=== PATIENT | female | born 1970 | race Caucasian/White ===

== ENCOUNTER → 2020-06-17 15:42 | Outpatient (CLI) | payer MEDICARE, SELFPAY ==
--- NOTE | 2020-06-17 15:42 | MR_ITS ---
PROCEDURE: MR CERVICAL SPINE WO CON CLINICAL INDICATION: neck pain radiates to arms BILATERAL ARM PAIN, NUMBNESS, AND TINGLING. [id number]. HEADACHE. NO PRIOR. COMPARISON: No exams were available for comparison TECHNIQUE: Standard multiplanar multiecho sequences are performed without contrast. 3-D MIP and myelographic images are also rendered and reviewed FINDINGS: There is normal alignment. Craniocervical junction has an unremarkable appearance. C2-C3: Minimal ridging of the posterior endplate eccentric toward the left without impingement C3-C4: Unremarkable. C4-C5: Unremarkable. C5-C6: Unremarkable. C6-C7: Slight decrease in the disc space suggesting mild degenerative disc disease. C7-T1: Unremarkable. No disc herniation or canal stenosis. Unremarkable signal intensity of the spinal cord IMPRESSION: Only minimal degenerative changes. No disc herniation canal stenosis or other significant anomaly Dictated b Eder Llanes MD 06/19/2020 13:05 Eder Llanes MD in [place] 06/19/2020 13:05
== END ==
LOC: RAD 15:42
PROVIDERS: PCP Family Medicine; Visit Provider Family Medicine
DX: M54.2 Cervicalgia (principal)
CPT/HCPCS: 72141; 76376

== ENCOUNTER → 2020-08-25 09:48 | Outpatient (CLI) | payer MEDICARE, SELFPAY ==
--- NOTE | 2020-08-25 09:53 | XR_ITS ---
PROCEDURE: XR WRIST LT MIN 3V CLINICAL INDICATION: left wrist pain/ CTS COMPARISON: No exams were available for comparison FINDINGS: No fracture or dislocation. No lytic or blastic change. There is normal mineralization. The joint spaces are well-preserved. No significant degenerative/arthritic changes. No erosive changes evident. Other findings:None. IMPRESSION: No acute findings. Dictated by: Eder Llanes MD 08/25/2020 16:42 Eder Llanes MD in [facility] 08/25/2020 16:42
--- NOTE | 2020-08-25 09:53 | XR_ITS ---
PROCEDURE: XR WRIST RT MIN 3V CLINICAL INDICATION: CTS/ rt wrist pain COMPARISON: No exams were available for comparison FINDINGS: No fracture or dislocation. No lytic or blastic change. There is normal mineralization. The joint spaces are well-preserved. No significant degenerative/arthritic changes. No erosive changes evident. Other findings:None. IMPRESSION: No acute findings. Dictated by: Eder Llanes MD 08/25/2020 16:41 Eder Llanes MD in [place] 08/25/2020 16:41
== END ==
PROVIDERS: PCP Family Medicine; Visit Provider Orthopaedic Surgery
DX: M25.532 Pain in left wrist (principal); M25.531 Pain in right wrist
CPT/HCPCS: 73110

== ENCOUNTER → 2020-09-14 14:18 | Outpatient (CLI) | payer MEDICARE, SELFPAY ==
[2020-09-14 15:43] LABS: Basophils % 0.4 % (0.1-2.0); Eosinophils # 0.1 K/mm3 (0.0-0.4); Eosinophils % 0.7 % (0.1-12.0); Hematocrit 43.9 % (37.0-47.0); Hemoglobin 14.9 g/dL (12.2-16.2); Lymphocytes # 2.5 K/mm3 (0.7-4.5); Lymphocytes % 27.3 % (10-50); Mean Corpuscular HGB Conc 33.9 g/dL (31.8-35.4); Mean Corpuscular Hemoglobin 33.2 pg (27.0-31.2); Mean Platelet Volume 6.7 fl (7.4-10.4); Monocytes # 0.3 K/mm3 (0.1-1.0); Monocytes % 3.4 % (1.7-9.3); Neutrophils # 6.2 K/mm3 (1.8-7.8); Neutrophils % 68.2 % (37.0-80.0); Platelet Count 297 K/mm3 (142-424); Red Blood Count 4.48 M/mm3 (4.20-5.40); Red Cell Distribution Width 13.3 % (11.5-17.5)
[2020-09-14 16:14] LABS: Chloride 106 mmol/L (98-107)
[2020-09-14 16:15] LABS: Sodium 140 mmol/L (136-145)
[2020-09-14 16:17] LABS: Alanine Aminotransferase 6 U/L (12-78); Albumin Level 4.1 g/dl (3.5-5.0); Albumin/Globulin Ratio 1.1 (1.1-1.8); Alkaline Phosphatase 116 U/L (38-126); Aspartate Amino Transferase 23 U/L (14-36); Bilirubin,Total 0.4 mg/dl (0.2-1.3); Blood Urea Nitrogen 14 mg/dl (7-17); Carbon Dioxide 25 mmol/L (22.0-30.0); Estimated Glomerular Filt Rate 67 ml/min (>60); GFR (African American) 81 ML/MIN (>60); Globulin 3.8 g/dL (1.3-3.2); Total Protein,Serum 7.9 g/dl (6.3-8.2)
[2020-09-14 16:18] LABS: Glucose 88 mg/dl (74-100)
[2020-09-14 17:02] LABS: Coronavirus 19 IgG Antibody Negative (Negative); Coronavirus 19 IgM Antibody Negative (Negative)
== END ==
PROVIDERS: Visit Provider Orthopaedic Surgery
DX: Z01.818 Encounter for other preprocedural examination (principal); G56.01 Carpal tunnel syndrome, right upper limb
CPT/HCPCS: 36415; 80053; 85025; 86328

== ENCOUNTER 2020-09-16 07:30 | Day surgery (SDC) | payer MEDICARE, SELFPAY ==
[2020-09-16 08:34] VITALS: BP 109/71; PULSE 75; RESP 18; TEMP 36.1; O2SAT 94; BMI 26.6
--- NOTE | 2020-09-16 10:36 | P.PN_ITS ---
[facility] Anesthesia Checklist - Patient Identification Patient Identification: Arm Band, Verbal (Name & ) - Structural Data Admitted From: Home Planned Operative Procedure/s: Right CTR Consent for Planned Operative Procedure(s) Verified: Yes Verified Documents: Surgical Consent, History and Physical - NPO Status Verified Time NPO: 00:00 - Chart Verification Results Verified: CBC, BMP - Additional verifications Anesthesia Reactions: No Hx Blood Transfusions: No Blood Transfusion Reaction: No - Airway Assessment C-Spine Mobility Assessed: Yes TMJ Mobility Assessed: Yes Dentition: Dentures-good fit - Neurological Assessment Level of Consciousness: Awake, Alert, Appropriate, Follows Commands Hx Seizures: No Numbness or tingling in extremities: No - Anesthesia Plan Anesthesia Risk discussed: Yes Anesthesia Plan: Verified ASA Class: III Anesthesia Type: MAC w/Block [facility] History I have reviewed the patient's past medical history: Yes Medical History: Reports:: Anxiety, Cancer (cervical), Chronic Obstructive Pulmonary Disease (COPD), Depression, Gall Bladder Disease, Gastroesophageal Reflux Disease(GERD), Transient Ischemic Attacks (TIA) Denies:: Diabetes Mellitus Type 1, Diabetes Mellitus Type 2, Internal Pacemaker, MRSA *Have you ever received a pneumonia vaccine?: Yes *Have you received a flu vaccine this season?: No Other Medical History: Denies: Blood Transfusion Reaction Anesthesia experience/problems:: None Other Surgeries: Yes: Appendectomy, Hysterectomy-Total. No: Pacemaker Amputation: No Fractures: Yes - *Social History Last grade of school completed: High school graduate Smoking Status: Current every day smoker Tobacco Type: cigarettes # Packs/Day (cigarettes): 1 Alcohol Intake: never Alcohol Intake Frequency:: holidays/special occasions only Substance Use Type: denies use *Occupational Status:: disabled Housing: house Household Members: family *Travel in the last 8 weeks: None - Psychiatric History Pschychiatric History:: Reports:: Anxiety, Depression Family Hx:: Cancer, Heart Attack
[2020-09-16 10:55] VITALS: BP 101/69; PULSE 79; RESP 18; TEMP 36.5; O2SAT 96
[2020-09-16 11:10] VITALS: BP 109/79; PULSE 87; RESP 18; O2SAT 98
[2020-09-16 11:25] VITALS: BP 113/71; PULSE 76; RESP 18; O2SAT 96
--- NOTE | 2020-09-16 11:30 | HMH.OPNOTE ---
Date of procedure: 09/16/20 Pre-op Diagnosis:: Carpal tunnel syndrome, right wrist Post-op Diagnosis:: Same Procedure performed:: Open carpal tunnel release, right wrist Surgeon:: Kayode Castle MD [employer] ATTENDANT:: Saul Palacios Anesthesia: regional (Supraclavicular nerve block), other (IV sedation) Estimated blood loss (mL): 2 Clinical Note:: Patient is 50-year-old female with bilateral carpal tunnel syndrome with long-standing symptoms. Her EMG/NCV studies confirmed moderate carpal tunnel syndrome on both sides. Her symptoms on the right side are worse than the left. Patient is having significant and disabling symptoms on the right side and has failed to respond adequately to conservative management. Therefore the carpal tunnel release surgery is necessary to relieve symptoms, preserve the remaining fibers of the median nerve, improve function and decrease the pain, paresthesias and weakness and to prevent permanent nerve damage. Please refer to my office note for full details. Operative findings:: The intraoperative findings showed the median nerve to be very tightly compressed and hyperemic. The flexor retinaculum was noted to be thick and tight. There was mild synovitis in the carpal tunnel. There was no evidence of any space-occupying lesions within the carpal tunnel. Operative note:: On the day of the surgery the patient was met in the preoperative area. Patient was positively identified and the operative site was marked and initialed by me. A physical examination was performed and the chart was updated. I again discussed the procedure, risks and benefits and alternatives with the patient. The complications discussed include but are not limited to- bleeding, injury to nerves, blood vessels and tendons, infection, wound dehiscence, incomplete relief/continued pain, persistent numbness, palmar hypersensitivity, pillar pain, DVT/PE, complex regional pain syndrome(CRPS), worsening of nerve damage, failure of the condition to improve, incomplete return of function, bowstringing of tendons, weakness of solar energy technician strength, recurrence, failure of the surgery to accomplish the desired goals, decreased use of the hand, loss of use of the arm, loss of the hand or arm, loss of life. Likely need for further surgery in the future has been discussed. I've indicated to the patient where the proposed incision would be made and also discussed the possibility of extending the incision if needed to accomplish an effective release. We have discussed how the goal of surgery is to protect the fibers which have remained healthy and hopefully reverse the symptoms of the fibers which are compromised but still recoverable. We have explained that, fibers that are permanently damaged will not recover. Patient asked appropriate questions and all have been answered by me. Patient wished to proceed with the surgery. Patient understood the risks, agreed to proceed with surgery, and no guarantees or assurances were given or implied. The patient was brought to the operating room and placed supine on the operating table. The right upper extremity was placed over a side table. All the bony prominences were well-padded. Patient had supraclavicular nerve block and IV sedation administered by the alteration hand. A well-padded tourniquet cuff was placed over the upper arm. The right upper extremity was prepped and draped in the usual sterile fashion. A preprocedure timeout was performed as per hospital policy. The skin incision was marked using the Pereira's landmarks, just ulnar to the thenar crease. The limb was exsanguinated with the Esmarch bandage and tourniquet was inflated to 250 mmHg. Please see nursing records for the total tourniquet time. Pereira's landmarks were utilized and a skin incision was made parallel and just ulnar to the thenar crease with a 15 blade. Blunt tissue dissection was carried through the subcutaneous tissue down to the palmar fascia. The palmar fascia was incised with the k
[2020-09-16 12:25] VITALS: TEMP 43
== END 2020-09-16 11:25 | disposition home or self-care (01) ==
LOC: OR 07:32
PROVIDERS: PCP Family Medicine; Visit Provider Orthopaedic Surgery
PROC: (CPT 64721; principal; 2020-09-16 09:00)
DX: G56.01 Carpal tunnel syndrome, right upper limb (principal)
CPT/HCPCS: 64721; 96374; J0670

== ENCOUNTER 2025-06-27 20:19 | Emergency (ER) | payer MEDICARE, SELFPAY ==
--- OUTSIDE RECORDS SUMMARY | 2025-05-01 08:45 | XMS_ITS | Encounter Summary ---
Author Organization [place] [address] Care Team Providers Care Electrical Maintenance Supervisor Name Role Phone Asiya Trevino APRN Primary Care Provider [phone] Reason for Referral * Consultation (Routine) - Authorization Not Needed Specialty Diagnoses / Procedures Referred By Contluba t Referred To Contact Diagnoses Atypical chest pain Procedures NE OFFICE/OUTPATIENT NEW MODERATE MDM 45 MINUTES Asiya Trevino APRN [address] [place] [address] Phone: tel: fax: Referral ID Status Reason Start Date Expiration Date Visits Requested Visits Authorized [id number] Authorization Not Needed 05/01/2025 05/01/[address]Raghu Moreno, [facility], [address] [place] [address] Dr. Webber phone: [phone] Reason for Visit * Reason Comments Other States that she is h aving some sharp pains in her chest. Started 3 weeks ago, becoming more frequent Chest Pain Encounter Details Date Type Department Care Team (Late st Contact Info) Description 05/01/2025 8:45 AM EDT Office Visit [facility] [place] [address] [place] [address] Asiya Trevino APRN [address] [place] [address] Atypical chest pain (Primary Dx); Pain of left scapula Social History Tobacco Use Types Packs/Day Years Used Date Smoking Tobacco: Every Day Cigarettes 0.5 35 Started: 06/18/1990 Smokeless Tobacco: Current Chew Alcohol Use Standard Drinks/Week Comments Yes 1 (1 standard drink = 0.6 oz pur e alcohol) occ AUDIT-C Answer Date Recorded Q1: How often do you have a drink containing alc ohol? Monthly or less 06/16/2021 Q2: How many drinks containi ng alcohol do you have on a typical day when you are drinking? 1 or 2 06/16/2021 Q3: How often do you have si x or more drinks on one occasion? Never 06/16/2021 PHQ-2 Answer Date Recorded PHQ-2 Total Score 0 05/01/2025 Comments No Sex and Gender Information Value Date Recorded Sex Assigned at Not on file Legal Sex Female 3:38 AM EDT Gender Identity Not on file Sexual Orientation Not on file documented as of this encounter Last Filed Vital Signs Vital Sign Reading Time Taken Comments Blood Pressure 118/76 05/01/2025 8:47 AM EDT Pulse 67 05/01/2025 8:47 AM EDT Temperature 36.3 C (97.3 F) 05/01/2025 8:47 AM EDT Respiratory Rate 20 05/01/2025 8:47 AM EDT Oxygen Saturation 97% 05/01/2025 8:47 AM EDT Inhaled Oxygen Concentration - - Weight 73.5 kg (162 lb) 05/01/2025 8:47 AM EDT Height 165.1 cm (5' 5 ) 05/01/2025 8:47 AM EDT Body Mass Index 26.96 05/01/2025 8:47 AM EDT documented in this encounter Functional Status * PHQ-9 Total Score Answer Date of Assessment Author 0 05/01/2025 8:47 AM EDT Candy Caballero RMA * Question Answer Date of Assessment Author Little interest or pleasure in doing things 0 05/01/2025 8:47 AM EDT Candy Kirkpatrick RMA Feeling down, depressed, or hopeless 0 05/01/2025 8:47 AM EDT Candy Kirkpatrick RMA PHQ-2 Total Score 0 05/01/2025 8:47 AM EDT Candy Kirkpatrick RMA * PHQ-2 Total Score Answer Date of Assessment Author 0 05/01/2025 8:47 AM EDT Candy Caballero RMA documented as of this encounter Ordered Prescriptions Prescription Sig Dispense Quantity Refills Last Filled Start Date End Date HYDROcodone-acetami nophen (NORCO) 7.5-325 mg Oral TabletIndications:P ain of left scapula Take 1 Tablet by mouth every 6 hours as needed for Acute Pain (R52). 12 Tablet 05/01/2025 documented in this encounter Progress Notes * Uriel sAiya Galvin, EMERGENCY MEDICINE PHYSICIAN - 05/01/2025 8:45 AM EDT Assessment & Plan 1. Shoulder pain. - The etiology of the shoulder pain could be musculoskeletal in nature. - Increased pain and limited mobility. - Discussed the possibility of musculoskeletal origin and the relationship with numbness in fingers. - An injection will be administered into her left shoulder for pain relief. 2. Chest pain. - Reports experiencing sharp chest pains that have been increasing in frequency over the past threeweeks. - No radiation of pain down the arm, occasional nausea. - Discussed the need for a cardiology workup and the importance of cardiovascular screening. - A referral to a b2b sales executive will be made for further evaluation. An EKG performed today was NSR. PROCEDURE Procedure: Injection into the left shoulder All questions were answered and agreement to proceed was given after the following Pre-Procedure details were reviewed: - Risks and Benefits: Pain relief, potential for temporary discomfort at the injection site. - Alternative Options: Physical therapy, oral pain medications. - Side effects: Temporary discomfort at the injection site, possible swelling. - Consent: Verbal consent obtained. Intra-Procedure: - Time-Out: Confirmed patient's identity and procedure site. - Site Preparation: Cleaned and disinfected the left shoulder. - Medication: Depo-Medrol administered. Post-Procedure: - Tolerance Level: Tolerated the procedure well. - Complications: None observed. - Home Care Instructions: Monitor for any signs of infection or increased pain at the injection site, apply ice if needed, and follow up if symptoms persist. Dx/Orders: Diagnoses and all orders for this visit: Atypical chest pain - AMB REFERRAL TO CARDIOLOGY - POCT EKG Pain of left scapula - HYDROcodone-acetaminophen (NORCO) 7.5-325 mg Oral Tablet; Take 1 Tablet by mouth every 6 hours asneeded for Acute Pain (R52). Dispense: 12 Tablet; Refill: 0 - methylPREDNISolone acetate (DEPO-Medrol) injection 40 mg Return if symptoms worsen or fail to improve. Subjective Amilcar Ryder is a 54 y.o. female Chief Complaint Patient presents with Other States that she is having some sharp pains in her chest. Started 3 weeks ago, becoming more frequent Chest Pain History of Present Illness The patient is a 54-year-old female who presents today with complaints of shoulder pain and chest pain. She reports persistent L shoulder pain and is seeking relief through an injection. This has resulted in numbness in two of her fingers. She has been experiencing chest pain, which has been escalating in frequency over the past three weeks. The pain is described as sharp and intermittent, occurring daily. Accompanying symptoms includenausea, but there is no radiation of the pain down her arm. She has not previously consulted a b2b sales executive for these symptoms. Review of Systems Constitutional: Negative. Eyes: Negative for visual disturbance. Respiratory: Positive for cough and chest tightness. Negative for shortness of breath. Cardiovascular: Positive for chest pain and palpitations. Negative for leg swelling. Gastrointestinal: Positive for nausea. Negative for abdominal pain, diarrhea and vomiting. Genitourinary: Negative for dysuria. Musculoskeletal: Positive for arthralgias. Skin: Negative. Neurological: Positive for numbness (4th/5th digit L hand). Negative for dizziness, syncope and light-headedness. Psychiatric/Behavioral: Negative. Objective Blood pressure 118/76, pulse 67, temperature 97.3 ??F (36.3 ??C), temperature source Temporal, resp. rate 20, height 5' 5 (1.651 m), weight 162 lb (73.5 kg), SpO2 97%, not currently . Body mass index is 26.96 kg/m??. Physical Exam Vitals reviewed. Constitutional: General: She is not in acute distress. HENT: Mouth/Throat: Mouth: Mucous membranes are moist. Eyes: Conjunctiva/sclera: Conjunctivae normal. Cardiovascular: Rate and Rhythm: Normal rate and regular rhythm. Heart sounds: Normal heart sounds. Pulmonary: Effort: Pulmonary effort is normal. Breath sounds: Normal breath sounds. Musculoskeletal: Left shoulder: Tenderness and bony tenderness present. Decreased range of motion. Decreased strength. Cervical back: Neck supple. Pain with movement present. Decreased range of motion. Right lower leg: No edema. Left lower leg: No edema. Skin: General: Skin is warm and dry. Neurological: Mental Status: She is alert and oriented to person, place, and time. Psychiatric: Mood and Affect: Mood normal. Thought Content: Thought content normal. Results The provider educated the patient (or legal inbound call center representative) on the use of the ambient listening artificial intelligence tool, [employer]. They were informed that this AI tool processes the conversation to generate a clinical note with the expected benefit of improved accuracy while achieving an improved encounter experience for the patient and provider.?The provider explained that the medical information captured by the AI tool including, but not limited to, diagnoses and treatment plan would be protected in accordance with applicable privacy laws and that all diagnoses and treatment decisions would be made by the provider. The provider explained that the note generated will be reviewed bythe provider for accuracy to minimize potential errors.? The patient was given an opportunity to ask questions and opt out of proceeding with the use of the AI tool. After being informed of such information, the patient (or legal inbound call center representative), and each individual in attendance with the patient, verbally consented to the use of the AI tool. documented in this encounter Plan of Treatment Upcoming Encounters Date Type Department Care Team (Late st Contact Info) Description 06/30/2025 10:45 AM EDT Office Visit [facility] [address] [place] [id number] Asiya Trevino APRN [address] [facility] [place] [address] Scheduled Referrals Name Type Priority Associated Diagnoses Order Schedule AMB REFERRAL TO CARDIOLOGY Outpatient Referral Routine Atypical chest pain Ordered: 05/01/2025 documented as of this encounter Goals Goal Patient Goal Type Associated Problems Recent Progress Patient-Stated? Author Blood Pressure < 140/90 Blood Pressure 118/76(2024 8:47 AM EDT) No Candy Kirkpatrick RMA Maintain a healthy diet, exercise regularly and maintain an ideal body weight General No Candy Kirkpatrick RMA Stay Tobacco Free Lifestyle No Candy Kirkpatrick RMA documented as of this encounter Procedures Procedure Name Priority Date/Time Associated Diagnosis Comments POCT EKG Routine 05/01/2025 9:40 AM EDT Atypical chest pain documented in this encounter Results * POCT EKG (05/01/2025 9:40 AM EDT) 05/01/2025 9:40 AM EDT Asiya Trevino APRN POINT OF CARE CARDIOLOGY Final Result [facility] [place] [address] [place] [address] documented in this encounter Visit Diagnoses Diagnosis Atypical chest pain- Primary Other chest pain Pain of left scapula Pain in joint, shoulder region documented in this encounter Administered Medications Inactive Administered Medications - up to 1 most recent administrations Medication Order MAR Action Action Date Dose Rate Site methylPREDNISolone acetate (DEPO-Medrol) injection 40 mg 40 mg, Intra-articular, ONCE, 1 dose, On Sun05/01/25 at 2300, L shoulder, Dx: 1. Pain of left scapulaIndications:Pain of left scapula Given 05/01/2025 9:30 AM EDT 40 mg documented in this encounter Discontinued Medications Medication Sig Discontinue Reason Start Date End Da te HYDROcodone-acetaminophe n (NORCO) 7.5-325 mg Oral TabletIndications:Pain of left scapula Take 1 Tablet by mouth every 6 hours as needed for Acute Pain (R52). Reorder 03/20/2025 05/01/2025 documented as of this encounter Care Teams Electrical Maintenance Supervisor Relationship Specialty Start Date End Date Asiya Trevino APRN [address] [place] [address] PCP - General Nurse Practitioner 03/10/25 documented as of this encounter
[2025-06-27 20:26] VITALS: BP 138/81; PULSE 88; RESP 16; TEMP 36.6; O2SAT 96; BMI 26.6
--- NOTE | 2025-06-27 20:28 | HMH.EDGENADL ---
Discharge Plan Disposition Patient Disposition: Home, Self-Care Referrals Follow up/Referrals: Zion Boswell MD [Primary Care Provider, Family Practice] - See instructions Jaimie Smallwood DPM [Staff Physician, Podiatry] - See instructions Activity Restrictions/Add. Instructions Additional Instructions/Restrictions: You can wear the walking boot as needed to help with pain. You can continue to take Tylenol, ibuprofen, ice packs to help with your symptoms. You are being referred to Dr. Smallwood with the podiatry team for follow-up. I encouraged her to give their office a call to schedule follow-up appointment. If you develop any new or worsening symptoms, or if you become concerned for your health for any reason, return to the emergency department for evaluation Clinical Impressions Clinical Impression: Acute pain of left foot Print Language Print Language: Maori Discharge ED Provider: Billy Sheridan Adult HPI General Chief complaint: Extremity Injury, Lower Stated complaint: AO 8-9 days ago,injury left foot injury Time Seen by Provider: 06/27/25 20:22 Mode of Arrival: Ambulatory Source of Information: Patient Limitations: No Limitations History of Present Illness HPI narrative: Myriam Ryder is a 55F with a history of tobacco use who presents to the emergency department for complaints of left foot pain. Patient states that 8 to 9 days ago, she was walking down a set of steps in her garage and hit her left foot on the step. She reports pain at the base of the 2nd, 3rd and 4th toes ever since. She states that she is been walking on it but is painful to do so. She states that she has been taking Tylenol and ibuprofen and feels like it is not getting any better. She does state that it was initially bruised but overall the bruising has improved. Related Data Allergies Allergy/AdvReac Type Severity Reaction Status Date / Time Sulfa (Sulfonamide Allergy Unknown Verified 09/29/20 09:19 Antibiotics) [facility] Disclaimer: The information contained in this section may have been updated after the patient was seen, as this information can be updated by other users. Social History Smoking Status: Current every day smoker tobacco type: cigarettes packs per day: 1 alcohol intake: never substance use type: denies use current occupational status: disabled Travel in the last 8 weeks?: None household members: family housing: house caffeine: Yes Have you lived/traveled outside US in past 30 days?: No Contact w/someone who lives/traveled outside US past 30 days?: No Exposure to someone with infectious disease in past 14 days?: No Do you have a fever (greater than 100.4 F or 38 C)?: No Have you tested positive for COVID-19?: No Exposed to someone with COVID-19 in past 14 days?: No Do you have a sore throat?: No Do you have a cough?: No Do you have any weakness?: No Do you have any diarrhea?: No Are you experiencing any unusual bleeding?: No Do you have any muscle aches/pain?: No Do you have any abdominal pain?: No Are you experiencing loss of taste or smell?: No Other Medical History Have you received the Flu Vaccine for this season: No Have you received the Pneumonia Vaccine: No ROS Obtained: Yes Systems reviewed as appropriate & no additional complaints except as documented Physical Exam General General appearance: alert and in no apparent distress Head Head exam: atraumatic Eye Eye exam: Present normal appearance ENT ENT exam: Present normal external ear exam Neck Neck exam: Present full ROM Chest Chest inspection: Present symmetric chest wall rise Respiratory Respiratory exam: Present normal lung sounds bilaterally; Absent respiratory distress Cardiovascular Cardiovascular exam: Present regular rate and normal rhythm Abdominal Exam Abdominal exam: Present soft; Absent tenderness or guarding Extremities Exam Extremities exam: Present normal inspection Expanded Lower Extremity Exam Left: Comment: LLE: Tenderness to the distal forefoot but flexor and extension function intact to all toes. Tenderness at the base of the 2nd, 3rd and 4th toes. Mild amount of swelling in this area. 2+ DP and PT pulses. Sensation grossly intact. Back Exam Back exam: Present normal inspection Neurological Exam Neurological exam: Present alert and oriented X3 Psychiatric Psychiatric exam: Present normal affect Skin Skin exam: Present warm and dry Medical Decision Making Medical Records Screening: Per USPSTF and CDC recommendations, given the prevalence of disease in our region, it is our hospital?s policy to screen for HIV and viral Hepatitis for all patients aged 18 and over and those with ongoing risk factors. Hemal Inquiry Pt receiving controlled substance: No Vital Signs: 06/27/25 20:26 Temperature 98 F Temperature Source Oral Pulse Rate [Radial] 88 Respiratory Rate 16 Blood Pressure [Right Arm] 138/81 Blood Pressure Mean [Right Arm] 100 Blood Pressure Position [Right Arm] Sitting 02 Sat by Pulse Oximetry 96 Oxygen Delivery Method Room Air Orders (Tests/Meds): ORDERS Category Date Time Status Foot XR left 2 views [XR foot LT 2V] Stat Exams 06/27/25 20:30 Taken Medical Decision Narrative: Myriam Ryder is a 55F with a history of tobacco use who presents to the emergency department for complaints of left foot pain. Patient states that 8 to 9 days ago, she was walking down a set of steps in her garage and hit her left foot on the step. She reports pain at the base of the 2nd, 3rd and 4th toes ever since. She states that she is been walking on it but is painful to do so. She states that she has been taking Tylenol and ibuprofen and feels like it is not getting any better. She does state that it was initially bruised but overall the bruising has improved. She states that it is continued to be painful and so she feels like she may have fractured something and wants it evaluated. On arrival, patient is hemodynamically stable, no acute distress, breathing comfortably on room air. Patient has some tenderness and mild amount of swelling of the distal left forefoot at the base of the 2nd, 3rd and 4th toes. Flexor and extension function intact throughout all toes. Sensation grossly intact. Strong 2+ DP and PT pulses. No other injuries are appreciated. Differential diagnosis includes, but is not limited to: Fracture, ligamentous injury, tendinous injury, soft tissue injury, low concern for vascular injury, among others. The most morbid conditions were considered and workup was based on these. Workup in the emergency room included: Left foot x-rays. X-rays were interpreted by me personally and demonstrated no fractures or dislocations. See radiology report for final details. Given patient's continued pain, we will place her in a walking boot for comfort and have her follow-up with Dr. Smallwood with the podiatry team. Encouraged her to continue taking Tylenol, ibuprofen for pain. Return precautions were given. All questions were answered. She demonstrated understanding and was in agreement this plan. She was then discharged from the emergency department in stable condition. Critical Care Critical Care Time Critical Care Time: No
--- OUTSIDE RECORDS SUMMARY | 2025-06-27 20:29 | XMS_ITS | Encounter Summary ---
Author Organization [facility] [place] [address] Care Team Providers Care Livestock Judging Coach Name Role Phone Asiya Trevino APRN Primary Care Provider [phone] Reason for Visit * Reason Onset Date Comments Central Patient Navigator Outreach 04/28/2025 AWV Questionnaire Encounter Details Date Type Department Care Team ([facility] Contact Info) Description 04/28/2025 Patient Outreach SEP [facility] [address] [place], [place] [id number] Asiya Trevino, OXYACETYLENE WELDER [address] [place] [address] Central Patient Navigator Outreach (AWV Questionnaire) Social History Tobacco Use Types Packs/Day Years [...] Answer Date Recorded PHQ-2 Total Score 0 04/29/2025 Comments No Sex and Gender Information Value Date Recorded Sex Assigned at Not on file Legal Sex Female 3:38 AM EDT Gender Identity Not on file Sexual Orientation Not on file documented as of this encounter Progress Notes * AdityaKendra ramirez - 04/28/2025 10:36 AM EDT Patient Outreach: Pre-Visit Questionnaires Attempt Count: 1st Care Gaps Addressed device sales consultant: Medicare Questionnaire Outcome:Left message to return call at and MyChart Message Sent Call back number: [phone] documented in this encounter Plan of Treatment Upcoming Encounters Date Type Department Care Team (Late st Contact Info) Description 06/30/2025 10:45 AM EDT Office Visit [facility] [place] [address] [place] [id number] Asiya Trevino APRN [address] [place] [address] documented as of this encounter Goals Goal Patient Goal Type Associated Problems Recent Progress Patient-Stated? Author Blood Pressure < 140/90 Blood Pressure 118/76(2024 8:47 AM EDT) No Candy Kirkpatrick RMA Maintain a healthy diet, exercise regularly and maintain an ideal body weight General No Candy Kirkpatrick, RMA Stay Tobacco Free Lifestyle No Candy Kirkpatrick RMA documented as of this encounter Visit Diagnoses Not on filedocumented in this encounter Care Teams Livestock Judging Coach Relationship Specialty Start Date End Date Asiya Trevino, YAIMA [address] [place] [address] PCP - General Nurse Practitioner 03/10/25 documented as of this encounter
--- OUTSIDE RECORDS SUMMARY | 2025-06-27 20:29 | XMS_ITS | Encounter Summary ---
Author Organization [place] [address] Care Team Providers Care Non Linear Editor Name Role Phone Zion Boswell MD Primary Care Provider [phone] Asiya Trevino APRN Primary Care Provider [phone] Encounter Details Date Type Department Care Team (Late st Contact Info) Description 08/21/2017 [address] [facility] [place] [address] Cassandra Dhillon MD [address] [place], [place] [id number] Dysphagia; Gastritis without bleeding Social History Tobacco Use Types Packs/Day Years Used Date Smoking Tobacco: Every Day Cigarettes Smokeless Tobacco: Former Alcohol Use Standard Drinks/Week Comments No 0 (1 standard drink = 0.6 oz pur e alcohol) Comments No Sex and Gender Information Value Date Recorded Sex Assigned at Not on file Legal Sex Female 3:38 AM EDT Gender Identity Not on file Sexual Orientation Not on file documented as of this encounter Plan of Treatment Upcoming Encounters Date Type Department Care Team (Late st Contact Info) Description 06/30/2025 10:45 AM EDT Office Visit [facility] [place] [address] [place] [address] Asiya Trevino APRN [address] [place] [address] documented as of this encounter Procedures Procedure Name Priority Date/Time Associated Diagnosis Comments PATHOLOGY TISSUE REQUEST Today 08/21/2017 12:30 PM EDT Dysphagia Gastritis without bleeding documented in this encounter Results * PATHOLOGY TISSUE REQUEST (08/21/2017 12:30 PM EDT) CASE REPORT Surgical Pathology Case: [id number] Authorizing Provider: Cassandra Dhillon MD Collected: 08/21/2017 1230 Pathologist: Beverly Goff MD Received: 08/21/20172032 Specimen: Gastric, Bx in the antrum and pre-pyloric region 08/22/2017 10:05 AM EDT [facility] FINAL DIAGNOSIS Stomach, biopsy: - Mild superficial chronic gastritis. - Negative for H. pylori by routine H and E stain. 08/22/2017 10:05 AM EDT [facility] at 1005 EDT CLINICAL INFORMATION Dysphagia. 08/22/2017 10:05 AM EDT [facility] GROSS DESCRIPTION Received in formalin labeled with the patient's name and designated gastric biopsy are 4 portions of calderon soft tissue 0.3 to 0.5 cm in greatest dimension. Entirely submitted in one cassette. /CDM 08/22/2017 10:05 AM EDT [facility] MICROSCOPIC DESCRIPTION Microscopic examination is performed and the findings corroborate the diagnosis. 08/22/2017 10:05 AM EDT [facility] EMBEDDED IMAGES 08/22/2017 10:05 AM EDT [facility] Tissue specimen (specimen) STOMACH STRUCTURE / Unknown 08/21/2017 12:30 PM EDT 08/21/2017 8:33 PM EDT us Cassandra Dhillon MD PATHOLOGY ORDERABLES Final Re sult [facility] [address] [place] [address] [facility] [address] [place] [address] documented in this encounter Visit Diagnoses Diagnosis Dysphagia Dysphagia, unspecified Gastritis without bleeding Unspecified gastritis and gastroduodenitis without mention of hemorrhage documented in this encounter Care Teams Non Linear Editor Relationship Specialty Start Date End Date Zion Boswell MD PCP - General Family Medicine 06/18/17 03/09/25 Asiya Trevino APRN [address] [place] [place] [address] PCP - General Nurse Practitioner 03/10/25 documented as of this encounter
--- OUTSIDE RECORDS SUMMARY | 2025-06-27 20:29 | XMS_ITS | Clinical Summary ---
Author Organization [facility] Address [place] [address] Care Team Providers Care Property Appraiser Name Role Phone Asiya Trevino APRN Primary Care Provider [phone] Allergies Active Allergy Reactions Criticality Noted Date Comments Sulfa Antibiotics 11/16/2023 Social History Tobacco Use Types Packs/Day Years Used Date Smoking Tobacco: Never Assessed Comments No Sex and Gender Information Value Date Recorded Sex Assigned at Not on file Legal Sex Female 7:09 PM EST Gender Identity Not on file Sexual Orientation Not on file Last Filed Vital Signs Vital Sign Reading Time Taken Comments Blood Pressure 143/89 11/16/2023 7:12 PM EST Pulse 94 11/16/2023 7:12 PM EST Temperature 37.2 C (98.9 F) 11/16/2023 7:12 PM EST Respiratory Rate 16 11/16/2023 7:12 PM EST Oxygen Saturation 97% 11/16/2023 7:12 PM EST Inhaled Oxygen Concentration - - Weight - - Height - - Body Mass Index - - Plan of Treatment Health Maintenance Due Date Last Done Comments Breast Cancer Screening 1971 CT Colonography 1971 Colonoscopy 1971 Colorectal Cancer Screening 1971 FIT-DNA 1971 FIT 1971 FOBT 1971 Sigmoidoscopy 1971 Hepatitis B (HepB) Vaccine ( 1 of 3 - 19+ 3-dose series) 1990 Tdap/Td Vaccine >11 yo (1 - Tdap) 1990 Cervical Cancer Screening 1992 Pneumococcal Vaccines >50 yo (2 of 2 - PCV) 2021 06/19/2018 Shingles (Shingrix) (1 of 2) 2021 Annual SDOH Screening 11/12/2024 PAF (Practitioner Assessment Form) 11/12/2024 Influenza Vaccine (#1) 2025 09/12/2023 Haemophilus Influenzae Type B (Hib) Vaccine Aged Out No longer eligible b ased on patient's age to complete this topic Hepatitis A (HepA) Vaccine Aged Out N o longer eligible based on patient's age to complete this topic Meningococcal ACWY Aged Out No longer eligible based on patient's age to complete this topic Polio (IPV) Aged Out No longer eligi ble based on patient's age to complete this topic Rotavirus (RV) Vaccine Aged Out No lo nger eligible based on patient's age to complete this topic Insurance [employer]ARE REPLACEMENT Care Teams Property Appraiser Relationship Specialty Start Date End Date Asiya Trevino APRN [address] [place], [place] [id number] PCP - General Nurse Practitioner Family 11/16/23
--- OUTSIDE RECORDS SUMMARY | 2025-06-27 20:29 | XMS_ITS | Clinical Summary ---
Author Organization [facility] Address [address] [facility] [address] [place] [address] Phone Care Team Providers Care Industrial Millwright Name Role Phone UrielAsiya Kamar ERWIN Primary Care Provider [phone] Allergies Active Allergy Reactions Criticality Noted Date Comments Sulfa (Sulfonamide Antibiotics) Swelling 05/13 Throat swells up Medications amitriptyline (ELAVIL) 25 mg Oral Tablet Take 1 Tab by mouth nightly. 30 Tab 3 1 Active albuterol (PROVENTIL HFA;VENTOLIN HFA) 90 mcg/actuation Inhl HFA Aerosol Inhaler Inhale 1 Puff into the lungs every 6 hours as needed. Active albuterol (PROVENTIL) 2.5 mg /3 mL (0.083 %) Inhl Solution for Nebulization Take 2.5 mg by nebulization every 6 hours as needed. Active cyanocobalamin 1,000 mcg Oral Tablet Take 1,000 mcg by mouth daily. Active ergocalciferol (DRISDOL) 1,250 mcg (50,000 unit) Oral Capsule Take 2,000 Units by mouth daily. Active omeprazole (PRILOSEC) 40 mg Oral Capsule, Delayed Release(E.C.) Take 40 mg by mouth daily. Active fluticasone propion-salmeter oL (ADVAIR DISKUS) 250-50 mcg/dose Inhl Disk with Device Inhale 1 Puff into the lungs 2 times daily. Active escitalopram oxalate (LEXAPRO) 10 mg Oral TabletIndication s:Major depression, chronic,Grief reaction Take 1 Tablet by mouth daily. 30 Tablet 2 5 Active HYDROcodone-acet aminophen (NORCO) 7.5-325 mg Oral TabletIndication s:Pain of left scapula Take 1 Tablet by mouth every 6 hours as needed for Acute Pain (R52). 12 Tablet 5 Active Active Problems Problem Noted Date Diagnosed Date Chronic tension-type headache, not intractable 0 03/15/2025 Assessment & Plan (03/15/2025 10:22 PM EDT): Headache frequency is stable and manageable at this time. No acute worsening. Gastroesophageal reflux dise ase with esophagitis without hemorrhage 03/15/2025 Assessment & Plan (03/15/2025 10:22 PM EDT): Symptoms well controlled with prescribed PPI and diet choices. Vitamin D deficiency 03/18/2023 Assessment & Plan (03/15/2025 10:22 PM EDT): Continue oral replacement therapy. Solitary pulmonary nodule 10/02/2022 Goiter 08/08/2022 Major depression, chronic 08/08/2022 Assessment & Plan (03/15/2025 10:22 PM EDT): Goal: achieve mental health wellness where ADLs, family, social and work relationships are optimal Depression Screen Score: Addressed: - Current stressors contributing to sx explored and discussed Compliance: - compliant with medications Advice: - remain compliant with follow up and medications - advised to contact this office if increased depressive or anxiety symptoms develop - avoid alcohol and drug use Medication Management: - medication management decisions took place at today's visit (see orders) - responding as expected Rheumatoid arthritis 08/08/2022 Assessment & Plan (03/15/2025 10:22 PM EDT): Pain is stable and well controlled. Elevated rheumatoid factor 05/25/2022 S/P laparoscopic cholecystectomy 06/28/2018 Smoker 06/18/2018 Anxiety 04/03/2017 Chronic back pain 04/03/2017 Chronic neck pain 04/03/2017 Chronic obstructive lung disease 04/03/2017 Assessment & Plan (03/15/2025 10:22 PM EDT): Denies recent exacerbation. Heartburn 04/03/2017 Hypertensive disorder 04/03/2017 Shoulder injury 04/03/2017 Alcohol dependence 01/13/2002 Nicotine dependence 01/13/1991 Acute cholecystitis due to biliary calculus Resolved Problems Problem Noted Date Diagnosed Date Resolved Date Acute abdominal pain in right upper quadrant 8 06/28/2018 Paranoid schizophrenia 04/03/201703/15 Encounters Date Type Department Care Team Description 05/01/2025 8:45 AM EDT Office Visit [facility] [address] [place] [address] Asiya Trevino APRN Atypical chest pain (Primary Dx); Pain of left scapula 05/01/2025 Travel 04/28/2025 Patient Outreach [facility] [address] [place] [address] Asiya Trevino APRN Central Patient Navigator Outreach (AWV Questionnaire) from Last 3 Months Immunizations Immunization Administration Dates Next Due Pneumococcal Polysaccharide 23 Valent 06/19/2018 Surgical History Surgery Date Site/Laterality Comments HYSTERECTOMY SECTION SHOULDER SURGERY CHOLECYSTECTOMY, LAPAROSCOPIC 06/18/2018 N/A LAPAROSCOPIC CHOLECYSTECTOMY; Surgeon: Joellen Williamson MD; Location: [facility]; Service: General Medical History Medical History Date Comments Schizophrenia (HCC) COPD (chronic obstructive pulmonary disease) (HC C) PTSD (post-traumatic stress disorder) Pneumonia NC (myocardial infarction) (HCC) april 2018 Seizures (HCC) Drug abuse (HCC) Hypertension Family History Medical History Relation Name Comments Esophageal Cancer Mother Celiac Disease Neg Hx Colon Polyps Neg Hx Inflam Bowel Dis Neg Hx Liver Disease Neg Hx Migraines Neg Hx Ulcerative Colitis Neg Hx Relation Name Status Comments Mother Social History Tobacco Use Types Packs/Day Years Used Date Smoking Tobacco: Every Day Cigarettes 0.5 35 Started: 06/18/1990 Smokeless Tobacco: Current Chew Tobacco Cessation:Ready to Q uit: Not Asked; Counseling Given: Not Answered Alcohol Use Standard Drinks/Week Comments Yes 1 [...] on file Sexual Orientation Not on file Obstetrics History Last Filed Vital Signs Vital Sign Reading [...] Mass Index 26.96 05/01/2025 8:47 AM EDT Plan of Treatment Upcoming Encounters Date Type Department Care Team (Late st Contact Info) Description 06/30/2025 10:45 AM EDT Office Visit [facility] [address] [place] [phone] Asiya Trevino, EQUAL EMPLOYMENT OPPORTUNITY OFFICER [address] [place] [address] Health Maintenance Due Date Last Done Comments Wellness Exam Medicare 1974 DTaP/TDaP/Td (1 - Tdap) 1990 Hepatitis B Vaccine (1 of 3 - 19+ 3-dose series) 1990 Cervical Cancer Screening 1992 Pap Smear 1992 HPV/Pap Cotest 2001 Cologuard 2016 FIT 2016 Sigmoidoscopy 2016 Virtual Colonography 2016 Pneumococcal Vaccine 50+ (2 of 2 - PCV) 06/19/2019 06/19/2018 Zoster (1 of 2) 2021 COVID-19 Vaccine (3 - 2023-2 5 season) 2024 12/27/2021, 11/18/2021 Influenza Vaccine (#1) 2025 09/12/2023 Breast Cancer Screening 01/17/2026 01/18/2024 Colon Cancer Screening 08/21/2027 Colonoscopy 08/21/2027 08/21/2017 Meningococcal B Vaccine Aged Out No l onger eligible based on patient's age to complete this topic Goals Goal Patient Goal Type Associated Problems Recent Progress Patient-Stated? Author Blood Pressure < 140/90 Blood Pressure 118/76(2024 8:47 AM EDT) No Candy Kirkpatrick RMA Maintain a healthy diet, exercise regularly and maintain an ideal body weight General No Candy Kirkpatrick RMA Stay Tobacco Free Lifestyle No Candy Kirkpatrick RMA Procedures Procedure Name Priority Date/Time Associated Diagnosis Comments POCT EKG Routine 05/01/2025 9:40 AM EDT Atypical chest pain MM MAMMO DIGITAL KATELIN SCREEN BILAT Routine 01/18/2024 11:35 AM EST Encounter for screening mammogram for malignant neoplasm of breast [facility] COLONOSCOPY Routine 08/21/2017 12:4 5 PM EDT from Last 3 Months or Most Recently Relevant to Health Maintenance Results * POCT EKG (05/01/2025 9:40 AM EDT) 05/01/2025 9:40 AM EDT us Asiya Trevino EQUAL EMPLOYMENT OPPORTUNITY OFFICER POINT OF CARE CARDIOLOGY Final Result [facility] [place] [address] [place], [place] [address] * MM MAMMO DIGITAL KATELIN SCREEN BILAT (01/18/2024 11:35 AM EST) Anatomical Region Laterality Modality Breast Bilateral Mammography 01/21/2024 8:42 AM EDT Impressions 01/21/2024 8:42 AM EDT Negative ([id number]) ~ RECOMMENDATION: Routine screening mammogram in 1 year. ~ DISCLAIMER * Any patient with a palpable abnormality, unexplained by breast imaging, should be managed on clinical basis by the attending physician. * Breast imaging has a false negative rate of 15%. * The patient was notified by mail of the results of this examination. *The patient's information was entered into a reminder system with a target due date for the next mammogram, in accordance with the [employer] and the Society of Breast Imaging recommendations. Narrative 01/21/2024 8:42 AM EDT Procedure:MM MAMMO DIGITAL KATELIN SCREEN BILAT ~ Reason for exam: screening, asymptomatic. Z12.31-Encounter for screening mammogram for malignant neoplasm of [id number]-CM ~ MM MAMMO DIGITAL KATELIN SCREEN BILAT Bilateral CC and MLO view(s) were taken. The breast tissue is heterogeneously dense. This may lower the sensitivity of mammography. Prior study comparison: Compared with prior studies the most recent being No prior studies available for comparison. No mammographic evidence of malignancy. No suspicious calcifications. ~ Procedure Note Berlin Johnston, DO - 01/21/2024 Procedure:MM MAMMO DIGITAL KATELIN SCREEN BILAT ~ Reason for exam: screening, asymptomatic. Z12.31-Encounter for screening mammogram for malignant neoplasm of [id number]-[id number]-CM ~ MM MAMMO DIGITAL KATELIN SCREEN BILAT Bilateral CC and MLO view(s) were taken. The breast tissue is heterogeneously dense. This may lower thesensitivity of mammography. Prior study comparison: Compared with prior studies the most recentbeing No prior studies available for comparison. No mammographic evidence of malignancy. No suspicious calcifications. ~ IMPRESSION: Negative ([id number]) ~ RECOMMENDATION: Routine screening mammogram in 1 year. ~ DISCLAIMER * Any patient with a palpable abnormality, unexplained by breast imaging, should be managed on clinical basis by the attending physician. * Breast imaging has a false negative rate of 15%. * The patient was notified by mail of the results of this examination. *The patient's information was entered into a reminder system with atarget due date for the next mammogram, in accordance with the [employer] and the Society of Breast Imaging recommendations. us Milan Early MD IMG MAMMOGRAPHY ORDERABLES Final Result * [facility] COLONOSCOPY (08/21/2017 12:45 PM EDT) 08/21/2017 12:4 5 PM EDT Impressions [facility] - 08/21/2017 1:31 PM EDT Normal mucosa in the whole colon. Internal hemorrhoids. Plan: Screening Colonoscopy in 10 years. This section is an excerpt of the full report. us Cassandra Dhillon MD GI PROCEDURE ORDERABLES Final Result Performing Organization Address City/State/[facility] Co de Phone Number [facility] [address] [place] [address] from Last 3 Months or Most Recently Relevant to Health Maintenance Insurance [employer] MEDICARE HMO MR [employer] MEDICARE PPO MR Advance Directives For more information, please contact: [phone] * Full Code (Latest Code Status on File) Date Activated Date Inactivated Comments 06/18/2018 12:37 AM 06/19/2018 6:14 PM Care Teams Industrial Millwright Relationship Specialty Start Date End Date Asiya Trevino APRN [address] [place] [address] PCP - General Nurse Practitioner 03/10/25
--- OUTSIDE RECORDS SUMMARY | 2025-06-27 20:29 | XMS_ITS | Encounter Summary ---
Author Organization [place] [address] Care Team Providers Care Spring Bender Name Role Phone Zion Boswell MD Primary Care Provider [phone] Asiya Trevino APRN Primary Care Provider [phone] Encounter Details Date Type Department Care Team (Late st Contact Info) Description 08/21/2017 Orders Only [facility] [address] [facility] [address] [place] [address] Cassandra Dhillon MD [address] [place], [place] [id number] Social History Tobacco Use Types Packs/Day Years [...] Description 06/30/2025 10:45 AM EDT Office Visit [facility] [address] [place] [phone] Asiya Trevino APRN [address] [place] [address] documented as of this encounter Procedures Procedure Name Priority Date/Time Associated Diagnosis Comments [facility] EGD Routine 08/21/2017 12:30 PM EDT documented in this encounter Results * [facility] EGD (08/21/2017 12:30 PM EDT) 08/21/2017 12:[address] [facility] - 08/21/2017 1:15 PM EDT Normal mucosa in the whole examined duodenum. Erythema and granularity in the antrum and pre-pyloric region compatible with non-erosive gastritis. (Biopsy). Normal mucosa in the whole esophagus. (Dilation). Plan: Await pathology results. Continue current medication for acid suppression 30 minutes before a meal. This section is an excerpt of the full report. us Cassandra Dhillon MD GI PROCEDURE ORDERABLES Final Result Performing Organization Address City/State/[facility] Co de Phone Number [facility] [address] [place] [address] documented in this encounter Visit Diagnoses Not on filedocumented in this encounter Care Teams Spring Bender Relationship Specialty Start Date End Date Zion Boswell MD PCP - General Family Medicine 06/18/17 03/09/25 Asiya Trevino APRN [address] [facility] [place] [address] PCP - General Nurse Practitioner 03/10/25 documented as of this encounter
--- OUTSIDE RECORDS SUMMARY | 2025-06-27 20:29 | XMS_ITS | Encounter Summary ---
Author Organization [facility] [place] [address] Care Team Providers Care Carburizing Furnace Operator Name Role Phone Asiya Trevino YAIAM Primary Care Provider [phone] Encounter Details Date Type Department Care Team (Latest Contact Info) Description 05/01/2025 Travel Social History Tobacco Use Types Packs/Day Years [...] on file documented as of this encounter Functional Status * PHQ-9 Total [...] Caballero RMA documented as of this encounter Plan of Treatment Upcoming Encounters Date Type Department Care Team (Late st Contact Info) Description 06/30/2025 10:45 AM EDT Office Visit [facility] [address] [place] [address] Asiya Trevino, SPECIAL NEEDS CAREGIVER [address] [facility] [place] [address] documented as of this encounter Goals Goal [...] on filedocumented in this encounter Care Teams Carburizing Furnace Operator Relationship Specialty Start Date End Date Asiya Trevino, YAIMA [address] [facility] [place] [address] PCP - General Nurse Practitioner 03/10/25 documented as of this encounter
--- OUTSIDE RECORDS SUMMARY | 2025-06-27 20:29 | XMS_ITS | Encounter Summary ---
Author Organization [place] [address] Care Team Providers Care Pediatric Nurse Practitioner Name Role Phone Zion Boswell MD Primary Care Provider [phone] Asiya Trevino APRN Primary Care Provider [phone] Encounter Details Date Type Department Care Team (Late st Contact Info) Description 08/21/2017 Orders Only [facility] [address] [facility] [address] [place] [address] Cassandra Dhillon MD [address] [place], [place] [id number] Social History Tobacco Use Types Packs/Day Years [...] AM EDT Office Visit [facility] [address] [place] [phone] Asiya Trevino APRN [address] [place] [address] documented as of this encounter Procedures Procedure Name Priority Date/Time Associated Diagnosis Comments [facility] COLONOSCOPY Routine 08/21/2017 12:4 5 PM EDT documented in this encounter Results * [facility] COLONOSCOPY (08/21/2017 12:45 PM EDT) 08/21/2017 12:4 5 PM EDT Impressions [facility] - 08/21/2017 1:31 PM EDT Normal mucosa in the whole colon. Internal hemorrhoids. Plan: Screening Colonoscopy in 10 years. This section is an excerpt of the full report. us Cassandra Dhillon MD GI PROCEDURE ORDERABLES Final Result [facility] [address] [place] [address] documented in this encounter Visit Diagnoses Not on filedocumented in this encounter Care Teams Pediatric Nurse Practitioner Relationship Specialty Start Date End Date Zion Boswell MD PCP - General Family Medicine 06/18/17 03/09/25 Asiya [place] [address] [place] [address] PCP - General Nurse Practitioner 03/10/25 documented as of this encounter
--- NOTE | 2025-06-27 20:30 | XR_ITS ---
PROCEDURE INFORMATION: Exam: XR Left Foot Exam date and time: 06/27/2025 8:34 PM Age: 55 years old Clinical indication: Injury or trauma; Fall; Blunt trauma; Foot; Left; Additional info: Fall, left distal forefoot pain TECHNIQUE: Imaging protocol: Radiologic exam of the left foot. Views: 1 or 2 views. Total images: 2 COMPARISON: No relevant prior studies available. FINDINGS: Bones/joints: Subtle acute transverse fracture distal aspect of the proximal phalanx 4th toe. No additional acute osseous abnormality. Unremarkable joint spaces. Tiny calcaneal enthesophyte at the Achilles tendon insertion. Bipartite medial hallux sesamoid bone. Soft tissues: Unremarkable soft tissues. IMPRESSION: Acute nondisplaced fracture proximal phalanx 4th toe.
[2025-06-27 21:36] VITALS: BP 120/64; PULSE 57; RESP 16; TEMP 36.9; O2SAT 98
== END 2025-06-27 21:37 | disposition home or self-care (01) ==
PROVIDERS: Emergency Provider Student in an Organized Health Care Education/Training Program; PCP Family Medicine
DX: M79.672 Pain in left foot (principal); W22.8XXA Striking against or struck by other objects, initial encounter
CPT/HCPCS: 73620; 99283